=== PATIENT | male | born 1975 | race Caucasian/White ===

== ENCOUNTER → 2021-03-04 11:40 | Outpatient (BNVA) | payer BC, SELFPAY | PROVIDERS: Family Provider Family Medicine; PCP Family Medicine; Visit Provider Urology | DX: Z78.9 Other specified health status (principal) | CPT/HCPCS: 81003; 87077; 87086; 87184 ==

== ENCOUNTER 2021-04-15 08:02 | Outpatient (CLI) | payer BC, SELFPAY ==
--- NOTE | 2021-04-15 08:00 | XRR_ITS ---
PROCEDURE INFORMATION: Exam: XR Abdomen Exam date and time: 04/15/2021 8:00 AM Age: 45 years old Clinical indication: Condition or disease; Other: Urolithiasis TECHNIQUE: Imaging protocol: XR of the abdomen. Views: Frontal supine view of the abdomen. 1 View. COMPARISON: CR XR KUB [id number] 09/28/2017 1:42 PM FINDINGS: Gastrointestinal tract: Normal. No bowel dilation. Organs: There are punctate densities that superimposed over the right renal profile possibly representing renal calculi although these superimposed over the large bowel is well. Vasculature: There are stable phleboliths seen within the pelvis bilaterally. Bones/joints: Unremarkable. XR/XR KUB [id number] IMPRESSION: There are punctate densities superimposed over the right kidney although these are also superimposed over the ascending colon. Radiation Dose CTDIVOL = (mGy): DLP = (mGy-cm)
--- NOTE | 2021-04-15 08:00 | US_ITS ---
WS: [id number] RENAL ULTRASOUND HISTORY: NEUROGENIC BLADDER COMPARISON: None available. TECHNIQUE: 2-D and color Doppler imaging of the kidney submitted. Right kidney: 10.2 cm x 5.7 cm x 5.1 cm. Normal echogenicity with no hydronephrosis or mass. Left kidney: 10.4 cm x 6.1 cm x 4.9 cm. Normal echogenicity with no hydronephrosis or mass. Aorta: Normal. Urinary Bladder: Moderately distended urinary bladder measures 7.3 x 8.2 x 5.9 cm. No intraluminal fi lling defects. The prostate gland is enlarged measuring 3.8 x 4.5 x 2.4 cm with very minimal extensio n into the posterior bladder. US/US renal BI* [id number] IMPRESSION: 1. Normal renal ultrasound. No hydronephrosis or mass. 2. Moderately distended urinary bladder.
== END 2021-04-15 08:03 | disposition home or self-care (01) ==
PROVIDERS: PCP Family Medicine; Visit Provider Urology
DX: N20.9 Urinary calculus, unspecified (principal); N31.2 Flaccid neuropathic bladder, not elsewhere classified; N32.89 Other specified disorders of bladder
CPT/HCPCS: 74018; 76770; 81003

== ENCOUNTER 2022-05-25 07:42 | Outpatient (CLI) | payer BC, SELFPAY ==
--- NOTE | 2022-05-25 07:51 | XR_ITS ---
WS: [id number] KUB, AP view, 05/25/2022 Clinical Data: Urolithiasis Comparison: KUB, 04/15/2021 Findings: No abnormal intraabdominal masses or calcifications are seen. There is no dilatated small bowel or ev idence of obstruction. Fecal material and bowel glass obscure detail over both kidneys. There are phleboliths in the true pe lvis. XR/XR KUB [id number] Impression: Negative KUB.
== END 2022-05-25 07:43 | disposition home or self-care (01) ==
LOC: RAD 07:46
PROVIDERS: PCP Family Medicine; Visit Provider Urology
DX: N20.9 Urinary calculus, unspecified (principal); N39.0 Urinary tract infection, site not specified
CPT/HCPCS: 74018; 81003

== ENCOUNTER → 2022-10-21 07:48 | Outpatient (BNVA) | payer BC, SELFPAY | PROVIDERS: PCP Family Medicine; Visit Provider Urology | DX: N39.0 Urinary tract infection, site not specified (principal); N20.9 Urinary calculus, unspecified; N31.2 Flaccid neuropathic bladder, not elsewhere classified | CPT/HCPCS: 81003 ==

== ENCOUNTER → 2022-11-25 09:27 | Outpatient (BNVA) | payer BC, SELFPAY | PROVIDERS: PCP Family Medicine; Visit Provider Family Medicine | DX: N39.0 Urinary tract infection, site not specified (principal) | CPT/HCPCS: 80053; 80061; 84439; 84443; 85025 ==

== ENCOUNTER → 2023-02-14 13:06 | Outpatient (BNVA) | payer BC, SELFPAY | PROVIDERS: PCP Family Medicine; Visit Provider Family Medicine | DX: N39.0 Urinary tract infection, site not specified (principal); J02.9 Acute pharyngitis, unspecified | CPT/HCPCS: 87071; 87880 ==

== ENCOUNTER 2024-02-05 09:18 | Emergency (ER) | payer BC, SELFPAY ==
[2024-02-05] VITALS (15 sets, daily range): BP systolic 113–139; BP diastolic 76–102; PULSE 73–113; RESP 12–22; TEMP 36.4; O2SAT 94–100; BMI 23.7
--- NOTE | 2024-02-05 09:33 | CTR_ITS ---
PROCEDURE INFORMATION: Exam: CT Abdomen And Pelvis Without Contrast Exam date and time: 02/05/2024 9:58 AM Age: 48 years old Clinical indication: Abdominal pain; Flank; Prior surgery; Surgery date: 6+ months; Surgery type: Transurethral resection of prostate; Patient HX: PT arrives pov with complaint of right lower back pain. PT states he is currently being treated for a UTI with abx. PT states this morning his pain got severe in his lower back. PT states he has chronic HX of kidney stones and has been self cathing for years. PT states he has a HX of prostate surgery. PT is in position upon triage and complaining of severe pain with audible moaning and graoning. PT appears in pain. PT vomiting during triage. PT is alert and oriented with tachypnic respirations with patent airway. PT denies fever. ; Additional info: Right flank pain TECHNIQUE: Imaging protocol: Computed tomography of the abdomen and pelvis without contrast. Radiation optimization: All CT scans at this facility use at least one of these dose optimization techniques: automated exposure control; mA and/or kV adjustment per patient size (includes targeted exams where dose is matched to clinical indication); or iterative reconstruction. COMPARISON: CT kidney stone [id number] 05/31/2017 10:37 AM RADIATION DOSE METRICS: Total DLP (mGy-cm): 464.89 FINDINGS: Lungs: Lung bases are clear as visualized. Diaphragm: There is a moderate-sized hiatal hernia. Liver: Normal. No mass. Gallbladder and biliary ducts: Normal. No calcified stones. No ductal dilation. Pancreas: Normal. No ductal dilation. Spleen: Normal. No splenomegaly. Adrenal glands: Normal. No mass. Kidneys and ureters: There are multiple nonobstructing renal calculi on the right. There is mild hydronephrosis and hydroureter extending to the ureterovesical junction where there is a 1-2 mm stone present. The left kidney has a normal noncontrast appearance. Stomach and bowel: There are scattered colonic diverticula. No large bowel wall thickening is appreciated. No dilated loops of large or small bowel is appreciated. Appendix: No evidence of appendicitis. Intraperitoneal space: Unremarkable. No free air. No significant fluid collection. Vasculature: Unremarkable. No abdominal aortic aneurysm. Lymph nodes: Unremarkable. No enlarged lymph nodes. Urinary bladder: Urinary bladder has a somewhat irregular contour which may be related to cellule formation. Minimal hyperdense debris layers within the urinary bladder. Reproductive: Unremarkable as visualized. Bones/joints: Unremarkable. No acute fracture. Soft tissues: There is a small fat filled periumbilical hernia. CT/CT kidney stone [id number] IMPRESSION: 1. Nephrolithiasis on the right. 2. Mild hydronephrosis and hydroureter on the right secondary to a 1-2 mm stone at the ureterovesical junction. 3. Minimal hyperdense debris layering within the urinary bladder. These may represent tiny stones. 4. Moderate-sized hiatal hernia. 5. Diverticulosis.
[2024-02-05] MEDS: ketorolac 30 mg/mL INJ 15 MG IVP (09:40)
[2024-02-05] MEDS: sodium chloride 0.9% 1,000 ML 999 ML IV (09:41)
[2024-02-05] MEDS: morphine 4 mg/mL SDV 1 mL IVP ×2 (09:44→11:35)
[2024-02-05] MEDS: ondansetron 2 mg/ML SDV 2 mL 4 MG IVP (09:44)
[2024-02-05 09:53] LABS: Basophils # 0.1 10^3/uL (0.0-0.1); Basophils % 0.9 %; Eosinophils # 0.4 10^3/uL (0.0-0.8); Eosinophils % 6.3 %; Hematocrit 42.3 % (37-53); Lymphocytes # 1.2 10^3/uL (0.8-4.8); Lymphocytes % 18.8 %; Mean Corpuscular HGB Conc 33.6 g/dL (30-55); Mean Corpuscular Hemoglobin 30.1 pg (27-33); Mean Corpuscular Volume 89.6 fl (82-101); Mean Platelet Volume 9.8 fL (7.4-10.4); Monocytes # 0.4 10^3/uL (0.2-0.9); Monocytes % 6.8 %; Neutrophils # 4.23 10^3/uL (1.8-7.7); Neutrophils % 66.7 %; Nucleated Red Blood Cells % 0 %; Platelet Count 252 10^3/cmm (157-399); Red Blood Count 4.72 10^6/uL (3.85-5.65); Red Cell Distribution Width 13.2 % (12.1-15.1); White Blood Count 6.34 10^3/uL (3.29-11.43)
[2024-02-05 10:11] LABS: Albumin Level 4.4 g/dL (3.5-5.2); Alkaline Phosphatase 109 U/L (40-130); Aspartate Amino Transferase 19 U/L (0-40); Blood Urea Nitrogen 12 mg/dL (6-20); Calcium 9.1 mg/dL (8.5-10.5); Carbon Dioxide 20 mmol/L (22-29); Chloride 101 mmol/L (98-107); Creatinine Clr Calc Pharmacy 95.0305; Globulin 3.2 g/dL (1.3-4.6); Glomerular Filtration Rate 79.1 mL/min (90-130); Glucose 139 mg/dL (65-115); Osmolality Calculated 286 mOsm/kg (285-295); Sodium 137 mmol/L (136-145); Total Bilirubin 0.7 mg/dL (0.15-1.2); Total Protein 7.6 g/dL (6.6-8.7)
[2024-02-05 10:22] LABS: Alanine Aminotransferase 15 U/L (0-41)
--- NOTE | 2024-02-05 12:46 | W.ED.ABDPA2 ---
HPI - Abdominal Pain General: Chief Complaint: Abdominal Pain Stated Complaint: right kidney pain, vomiting Time Seen by Provider: 02/05/24 09:27 History of Present Illness: This patient is a 48 year old presenting with right flank pain. He has a history of kidney stones and this feels like a kidney stone. It started abruptly this morning, although he has felt like he might be getting a UTI for a week or more. He has a flaccid bladder and self caths. He is on methenamine daily for UTI prevention. He has seen Dr. Ribera and had a urological procedure in [place] 3 or 4 years ago (roto-rooter?) but currently does not see a urologist. He is managed by his PCP. He has had vomiting today. No fever. He is not able to provide much history initially due to severity of his pain. Related Data Home Medications Medication Instructions Recorded Confirmed ascorbic acid (vitamin C) 1,000 mg 1 g PO DAILY PRN 11/25/22 02/14/23 capsule lactobacillus combination no.9 4 PO 11/25/22 02/14/23 billion cell capsule (Adult 50 Plus Probiotic) Previous Rx's Medication Instructions Recorded prednisone 20 mg tablet 40 mg (2 x 20 mg) PO DAILY 3 days 02/14/23 #6 tabs omeprazole 40 mg capsule,delayed See Rx Instructions .Route 12/01/23 release .COMPLEX #30 caps methenamine hippurate 1 gram tablet 1 g PO DAILY Recurrent UTI #30 tabs 01/09/24 Allergies Allergy/AdvReac Type Severity Reaction Status Date / Time No Known Allergies Allergy Verified 02/05/24 09:36 [facility] ED PFS: Medical History Neurogenic bladder, flaccid Recurrent UTI Self-catheterizes urinary bladder Urolithiasis Surgical History Hx of transurethral resection of prostate Family History Father , at age 68 CAD (coronary artery disease) Mother Cancer breast Other Diabetes Denies family history of Clotting disorder Dementia Hyperlipidemia Psychiatric illness Chronic kidney disease (CKD) Anesthesia complication Bleeding disorder Lung disease Hypertension Stroke Social History (Reviewed 02/14/23 @ 12:56 by ERIN Chairez Smoking and tobacco/nicotine status: former use of tobacco/nicotine Alcohol intake: current Alcohol intake frequency: holidays/special occasions only Alcohol type: beer Substance/Drug Use: never Lives independently: Yes Marital status: Number of children: 1 Current occupational status: employed 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 Ramona/L[employer]: [employer] Special ramona needs: No Agree to transfusion: Yes Physical Exam Const: COMMON NORMALS: patient oriented x3 and alert GENERAL APPEARANCE: cooperative, comfortable, in distress and anxious HENMT: HEAD & SCALP: normal to inspection FACE & SINUS: normal facial exam Eye: GENERAL EYE: appearance normal, both eyes and all related structures Neck/C-Spine: COMMON NORMALS: supple, no meningeal signs and no JVD Resp: COMMON NORMALS: normal respiratory effort, No use of accessory muscles and clear to auscultation bilaterally AUSCULTATION: clear to auscultation bilaterally Cardio: COMMON NORMALS: no JVD, regular rhythm and No murmurs present (Cardio) RATE: tachycardic RHYTHM: regular rhythm GI: COMMON NORMALS: Normal to inspection, nondistended, normoactive bowel sounds present and Soft to palpation INSPECTION: Yes normal to inspection AUSCULTATION: Yes normoactive bowel sounds PALPATION: Yes Soft to palpation and Yes Tenderness to palpation present (GI) Details: RLQ and RUQ : BLADDER/KIDNEY EXAM: Yes CVA tenderness on the right Back/Pelvis: COMMON NORMALS: thoracic and lumbar spine normal to inspection GENERAL BACK: Yes CVA tenderness Extremity: COMMON NORMALS: normal to inspection Neuro: COMMON NORMALS: patient oriented x3, moves all extremities, no focal motor deficits and no sensory deficits noted SENSORIUM/ORIENTATION: Yes alert MENINGEAL SIGNS: Yes no meningeal signs Psych: COMMON NORMALS: mental status grossly normal, cooperative and normal affect Skin: COMMON NORMALS: no rashes or lesions noted and turgor normal GENERAL SKIN EXAM: no rashes or lesions noted and turgor normal Course Vital Signs: Vital signs: Vital Signs Temperature 97.5 F L 02/05/24 09:48 Pulse Rate 83 02/05/24 17:30 Respiratory Rate 17 02/05/24 13:52 Blood Pressure 113/76 02/05/24 17:30 Pulse Oximetry 100 02/05/24 17:30 Oxygen Delivery Me thod Room Air 02/05/24 17:30 MDM - Abdominal Pain Medical Decision Making History of kidney stones - presentation is consistent with that diagnosis. Pain control and anti-emetics started - CT pending. UA pending. Concerning for infected stone given the history that he feels like he has had a UTI and has a history of recurrent UTIs with self cathing. CT shows obstructing ,small, distal stone - UA with 2+ bacteria and WBC. Pain is improved but still not controlled - continues to have vomiting and unable to tolerate PO. Plan to admit due to intractable pain and vomiting - as well as history of recurrent UTIs, self cathing, obstructing stone with UTI. [facility] was patient's initial choice for transfer - but they have no beds available. Waiting to hear back from [facility]. Patient accepted to urologist at [place] as a direct admit. Rocephin started. Urine culture pending. Lab Data 02/05/24 09:46 02/05/24 09:46 Labs/Radiology: Radiology Impressions Abdomen/Pelvis CT 02/05/24 09:33 IMPRESSION: 1. Nephrolithiasis on the right. 2. Mild hydronephrosis and hydroureter on the right secondary to a 1-2 mm stone at the ureterovesical junction. 3. Minimal hyperdense debris layering within the urinary bladder. These may represent tiny stones. 4. Moderate-sized hiatal hernia. 5. Diverticulosis. Laboratory Results WBC 6.34 10^3/uL (3.29-11.43) 02/05/24 09:46 RBC 4.72 10^6/uL (3.85-5.65) 02/05/24 09:46 Hgb 14.20 g/dL (11.27-16.99) 02/05/24 09:46 Hct 42.3 % (37-53) 02/05/24 09:46 MCV 89.6 fl (82-101) 02/05/24 09:46 MCH 30.1 pg (27-33) 02/05/24 09:46 MCHC 33.6 g/dL (30-55) 02/05/24 09:46 RDW 13.2 % (12.1-15.1) 02/05/24 09:46 Plt Count 252 10^3/cmm (157-399) 02/05/24 09:46 MPV 9.8 fL (7.4-10.4) 02/05/24 09:46 Neut % (Auto) 66.7 % 02/05/24 09:46 Lymph % (Auto) 18.8 % 02/05/24 09:46 O'Brien % (Auto) 6.8 % 02/05/24 09:46 Eos % (Auto) 6.3 % 02/05/24 09:46 Baso % (Auto) 0.9 % 02/05/24 09:46 Neut # (Auto) 4.23 10^3/uL (1.8-7.7) 02/05/24 09:46 Lymph # (Auto) 1.2 10^3/uL (0.8-4.8) 02/05/24 09:46 O'Brien # (Auto) 0.4 10^3/uL (0.2-0.9) 02/05/24 09:46 Eos # (Auto) 0.4 10^3/uL (0.0-0.8) 02/05/24 09:46 Baso # (Auto) 0.1 10^3/uL (0.0-0.1) 02/05/24 09:46 Nucleated RBC % (auto) 0 % 02/05/24 09:46 Nucleated RBCs # 0.0 /100WBC 02/05/24 09:46 Sodium 137 mmol/L (136-145) 02/05/24 09:46 Potassium 4.0 mmol/L (3.5-5.1) 02/05/24 09:46 Chloride 101 mmol/L (98-107) 02/05/24 09:46 Carbon Dioxide 20 mmol/L (22-29) L 02/05/24 09:46 Anion Gap 20.0 (5-19) H 02/05/24 09:46 BUN 12 mg/dL (6-20) 02/05/24 09:46 Creatinine 1.0 mg/dL (0.7-1.2) 02/05/24 09:46 GFR Calculation 79.1 mL/min (90-130) L 02/05/24 09:46 Glucose 139 mg/dL (65-115) H 02/05/24 09:46 Calculated Osmolality 286 mOsm/kg (285-295) 02/05/24 09:46 Calcium 9.1 mg/dL (8.5-10.5) 02/05/24 09:46 Total Bilirubin 0.7 mg/dL (0.15-1.2) 02/05/24 09:46 AST 19 U/L (0-40) 02/05/24 09:46 ALT 15 U/L (0-41) 02/05/24 09:46 Alkaline Phosphatase 109 U/L (40-130) 02/05/24 09:46 Total Protein 7.6 g/dL (6.6-8.7) 02/05/24 09:46 Albumin 4.4 g/dL (3.5-5.2) 02/05/24 09:46 Globulin 3.2 g/dL (1.3-4.6) 02/05/24 09:46 Urine Color Yellow (Yellow) 02/05/24 12:37 Urine Appearance Clear (CLEAR) 02/05/24 12:37 Urine pH 7 (5-7) 02/05/24 12:37 Ur Specific [place] 1.010 (1.005-1.030) 02/05/24 12:37 Urine Protein Neg (Negative) 02/05/24 12:37 Urine Glucose (UA) Norm (Normal) 02/05/24 12:37 Urine Ketones 1+ (Negative) H 02/05/24 12:37 Urine Blood Neg (Negative) 02/05/24 12:37 Urine Nitrate Negative (Negative) 02/05/24 12:37 Urine Bilirubin Neg (Negative) 02/05/24 12:37 Urine Urobilinogen Norm mg/dL (Negative) 02/05/24 12:37 Ur Leukocyte Esterase 2+ (Negative) H 02/05/24 12:37 Urine RBC None /hpf (0-2) 02/05/24 12:37 Urine WBC 15-25 /hpf (0-5) H 02/05/24 12:37 Ur Squamous Epith Cells None /hpf (0-5) 02/05/24 12:37 Amorphous Sediment Not Reportable 02/05/24 12:37 Urine Bacteria 2+ /hpf (NONE) H 02/05/24 12:37 All radiology interpretation(s) finalized by discharge Discharge Plan Discharge Patient Disposition: Transfer to ED Clinical Impression: Obstruction of right kidney, Neurogenic bladder, flaccid, Recurrent UTI, Acute UTI Condition: Stable Prescriptions: No Action prednisone 20 mg tablet 40 mg PO DAILY 3 Days Qty: 6 0RF ascorbic acid (vitamin C) 1,000 mg capsule 1 g PO DAILY PRN Patient Comments: Takes with the antibiotic Adult 50 Plus Probiotic 4 billion cell capsule PO omeprazole 40 mg capsule,delayed release(DR/EC) See Rx Instructions .ROUTE .COMPLEX Qty: 30 0RF Dose Instruction: Take 1 capsule by mouth at bedtime Rx Instructions: Take 1 capsule by mouth at bedtime methenamine hippurate 1 gram tablet 1 g PO DAILY Qty: 30 0RF Rx Instructions: 1 pill BID w/ 1 g vitamin C each dose Do not take with BACTRIM Referrals: Juarez Shah MD [Primary Care Provider] - Coding Level of Care Code ED Vocational Psychologist for Tad Rios
[2024-02-05 13:16] LABS: Glucose Urine UA Norm (Normal); Protein Urine Neg (Negative); Urine Appearance Clear (CLEAR); Urine Color Yellow (Yellow); pH Urine 7 (5-7)
[2024-02-05 13:17] LABS: Add Urine Culture? Yes; Add Urine Microscopic? YES; Bacteria Urine 2+ /hpf; Bilirubin Urine Neg (Negative); Blood Urine Neg (Negative); Ketones Urine 1+ (Negative); Leukocyte Esterase Urine 2+ (Negative); Nitrate Urine Negative (Negative); Urobilinogen Urine Norm (Negative); WBC Urine 15-25 /hpf (0-5)
[2024-02-05] MEDS: HYDROmorphone 1 mg/mL INJ 1 mL 0.5 MG IVP (13:52)
[2024-02-05] MEDS: ondansetron 2 mg/ML SDV 2 mL 8 MG IVP (13:53)
[2024-02-05] MEDS: cefTRIAXone 1,000 mg SDV 1000 MG IVP (15:25)
== END 2024-02-05 20:51 | disposition home or self-care (01) ==
PROVIDERS: Emergency Provider Emergency Medicine; PCP Family Medicine
DX: N39.0 Urinary tract infection, site not specified (principal); N31.2 Flaccid neuropathic bladder, not elsewhere classified; Z87.440 Personal history of urinary (tract) infections; N13.1 Hydronephrosis with ureteral stricture, not elsewhere classified; Z87.891 Personal history of nicotine dependence
CPT/HCPCS: 74176; 80053; 81001; 85025; 87086; 96361; 96374; 96375; 96376; 99285; J0696; J1170; J1885; J2270; J2405; J7030

== ENCOUNTER 2025-02-06 09:07 | Observation (INO) | payer BC, SELFPAY ==
[2025-02-06] VITALS (73 sets, daily range): BP systolic 63–150; BP diastolic 44–112; PULSE 77–113; RESP 12–28; TEMP 36.6–36.8; O2SAT 82–100; BMI 23.3
--- OUTSIDE RECORDS SUMMARY | 2025-02-06 09:14 | XMS_ITS | Patient Health Record ---
Author Organization [facility] Address [address] [place] [address] Care Team Providers Care Adult Daycare Coordinator Name Role Phone Juarez Shah MD Primary Care Provider Unavailab CHANTE Zabala Unavailable [phone] ILIANA LU Unavailable [phone] ERNST BARKER Unavailable [phone] Allergies No Known Allergies Results Component Value Reference Range Notes CLIENT EDUCATION TRACKING Reviewed date:04/05/2024 12:54:20 PM Interpretation: Performing Lab:[facility] MCKAY-[id number] [place], [id number] Nithya Sin MD Notes/Report: FASTING: NO CLIENT EDUCATION TRACKING The Requisition we received did not include a [employer] [facility] account number. To prevent delays in testing and processing of your orders please provide the following information with every order submitted: [facility] account number and account name Client address Client phone and fax number NPI number of ordering physician along with the physician name. CBC w/ Auto Diff Reviewed date:04/03/2024 10:48:24 AM Interpretation: Performing Lab: Notes/Report: Testing performed at: [place] [address] [place] [address] CLIA ID [id number] WBC 5.8 4.5-11.0 X10'3 RBC 4.61 4.50-5.90 X10'6 Hgb 13.8 13.5-17.5 G/DL Hct 42.3 41.0-53.0 % MCV 91.8 80.0-100.0 FL MCH 29.9 27.0-31.0 PG MCHC 32.6 31.0-37.0 G/DL Platelet 299 150-400 X10'3 RDW-SD 45.8 35.0-49.0 FL RDW-CV 13.4 12.2-15.6 % MPV 9.7 9.2-12.0 FL Neutro Auto% 64.8 40.0-70.0 % Lymph Auto% 20.1 22.0-44.0 % Stafford Auto% 10.7 3.0-7.0 % Eos Auto% 3.1 2.0-4.0 % Baso Auto% 1.0 0.0-1.0 % Imm Gran% .3 .0-.4 % Neutro Abs 3.77 .80-7.70 Absolute Neutrophil Count 3770 Lymph Abs 1.17 .10-4.10 Stafford Abs .62 .20-1.00 Eos Abs .18 .00-.40 Baso Abs .06 .00-.20 Imm Gran Abs .02 .00-.10 NRBC# .00 .00-.20 NRBC% .00 .00-.20 /100 int act WBC's Basic Metabolic Panel Reviewed date:04/03/2024 10:48:24 AM Interpretation: Performing Lab: Notes/Report: Use of this assay is not recommended for patients undergoing treatment with phenindione, due to the potential for falsely depressed results. Testing performed at: [address] [place] [address] CLIA ID [id number] Calculation performed from GFR calculator provided by the [employer]. Glomerular Filtration rate(GRF) is the best overall index of kidney function. Normal GFR varies according to age,sex, body size, and declines with age. The National Kidney Foundation recommends using the CKD-EPI Creatinine Equation(2020) to estimate GFR. Y-fxauuf-k-benzoquinone imine (NAPQI) is a metabolite of acetaminophen, NAPQI concentrations of apparoximately 10 mg/L correlation to toxic levels of acetaminophen demonstrates a greater than or equil to 10% change in results. NAPQI concentrations greater than this may lead to falsely depressed results for patient samples. Testing performed at [facility], [address] [place] [address] [place] [address]. CLIA ID#: [id number] Sodium 141 136-145 MMOL/L Potassium 4.0 3.5-5.1 MMOL/L Chloride 109 98-107 MMOL/L CO2 27.2 20.0-31.0 MMOL/L Glucose Serum 77 71-110 MG/DL BUN 13 7-21 MG/DL Creat 1.00 .57-1.17 MG/DL GFR 90.6 Anion Gap 9 5-15 BUN/Creat Ratio 13.0 12.0-20.0 % Calcium 9.8 8.7-10.4 MG/DL CULTURE, URINE, ROUTINE (395 ) Reviewed date:04/06/2024 08:07:04 AM Interpretation: Performing Lab:[facility] [employer][id number] [place] [facility], [id number] Nithya Sin MD Notes/Report: FASTING: NO CULTURE, URINE, ROUTINE SEE NOTE CULTURE, URINE, ROUTINE Micro Number: [id number] Test Status: Final Specimen Source: Not given Specimen Quality: Adequate Result: No Growth NO COLLECTION DATE RECEIVED. WE HAVE USED THE DATE THE SPECIMEN WAS RECEIVED BY THIS LABORATORY THE COLLECTION DATE. IF THIS IS INCORRECT, PLEASE CONTACT CLIENT SERVICES. PHONE NUMBER: [phone] Urinalysis, Routine Reviewed date:04/02/2024 03:44:17 PM Interpretation: Performing Lab: Notes/Report: Urine-Color yellow Appearance clear Glucose - Bilirubin - Ketones - Specific [place] 1.015 Occult Blood - pH 6.0 Urine Protein - Urobilinogen,Semi-Qn - Nitrite, Urine - WBC Esterase - Urinalysis, Routine Reviewed date:02/07/2024 02:07:16 PM Interpretation: Performing Lab: Notes/Report: Urine-Color yellow Appearance clear Glucose - Bilirubin - Ketones - Specific [place] 1.015 Occult Blood - pH 6.0- Urine Protein - Urobilinogen,Semi-Qn - Nitrite, Urine - WBC Esterase 1+ Urinalysis, Routine Reviewed date:10/30/2024 03:34:25 PM Interpretation: Performing Lab: Notes/Report: Urine-Color yellow Appearance slightly cloudy Glucose - Bilirubin - Ketones - Specific [place] 1005 Occult Blood - pH 6.5 Urine Protein - Urobilinogen,Semi-Qn - Nitrite, Urine - WBC Esterase 2+ Urinalysis Gross Exam - zzzAbdomen AP Reviewed date:02/29/2024 04:56:26 PM Interpretation: Performing Lab: Notes/Report: See Below For Report Abdomen AP Read See Below For Report CT Abdomen, Pelvis w/o Contr ast--[id number] Reviewed date:02/29/2024 04:56:18 PM Interpretation: Performing Lab: Notes/Report: See Below For Report CT Abdomen, Pelvis w/o Contrast Read See Below For Report zzzAbdomen Reviewed date:05/02/2024 08:39:13 AM Interpretation: Performing Lab: Notes/Report: See Below For Report Abdomen Read See Below For Report zzzAbdomen AP Reviewed date:10/31/2024 10:53:59 AM Interpretation: Performing Lab: Notes/Report: See Below For Report Abdomen AP Read See Below For Report Reason For Referral No Information Medications Medication SIG (Take, Route, Frequency, Duration) Notes Start Date End Date Status Tamsulosin HCl 0.4 MG 1 capsule Orally Once a day; Duration: 90 days 02/29/2024 02/23/2025 Not-Taking Omeprazole 40 MG 1 capsule 30 minutes before morning meal Orally Once a day Active Trimethoprim 100 MG 1 tablet Orally Once a day; Duration: 90 days Active Probiotic occasionally Active ZyrTEC 10 MG 1 tablet Orally Once a day Active Social History Tobacco Use: Social History Observation Description Date Details (start date - stop date) Former Smoker NA - NA Tobacco Control (Standard) Question Answer Notes Tobacco use: Former smoker How long has it been since you last smoked? 5-10 years Problems Problem Type SNOMED Code ICD Code Onset Dates Problem Status W/U Status Risk Notes Problem Neurogenic bladder (065747096) Neurogenic bladder (N31.9) Active confirmed Problem Benign prostatic hyperplasia (961119280) BPH (benign prostatic hyperplasia) (N40.0) Active confirmed Problem Kidney stone (10820209) Right nephrolithiasis (N20.0) Active confirmed Problem Recurrent nephrolithiasis (1203766418446006) Recurrent nephrolithiasis (N20.0) Active confirmed Problem Calculus of kidney and ureter (299944734) Calculus of kidney and ureter (N20.2) Active confirmed Vital Signs Heart Rate 79 /min 05/01/2024 Temperature 97.8 degrees Fahrenheit 02/29/2024 Blood pressure diastolic 103 mm Hg 05/01/2024 Height-cm 180.34 cm 10/30/2024 Weight-kg 72.58 kg 10/30/2024 Height 71 in 10/30/2024 Blood pressure systolic 154 mm Hg 05/01/2024 Weight 160 lbs 10/30/2024 BMI 22.31 kg/m2 10/30/2024 Procedures Procedure Date Ordered Date Performed Result Body Sit e Bladder Scan 02/07/2024 02/07/2024 N/A Encounters Encounter Location Date Provider Diagnosis [facility] [address] [place] [address] 02/07/2024 CHANTE LANDIN Calculus of kidney a nd ureter N20.2 ; History of urethral stricture Z87.448 ; Recurrent UTI N39.0 and Neurogenic bladder N31.9 [facility] [address] [place] [address] 02/29/2024 CHANTE LANDIN Neurogenic bladder N 31.9 ; Right nephrolithiasis N20.0 ; Recurrent UTI N39.0 ; History of urethral stricture Z87.448 and BPH (benign prostatic hyperplasia) N40.0 [facility] [address] [place] [address] 04/02/2024 ERNST BARKER Right nephrolithiasi s N20.0 ; Preoperative examination Z01.818 ; Neurogenic bladder N31.9 ; Recurrent UTI N39.0 ; History of urethral stricture Z87.448 and BPH (benign prostatic hyperplasia) N40.0 [facility] [address] [place] [address] 04/03/2024 ILIANA LU Recurrent nephrolithiasis N20.0 [facility] [address] [place] [address] 05/01/2024 CHANTE LANDIN Neurogenic bladder N 31.9 ; Right nephrolithiasis N20.0 ; Recurrent UTI N39.0 ; History of urethral stricture Z87.448 and BPH (benign prostatic hyperplasia) N40.0 [facility] [address] [place] [address] 10/30/2024 CHANTE LANDIN Recurrent UTI N39.0 ; Recurrent nephrolithiasis N20.0 ; Neurogenic bladder N31.9 ; History of urethral stricture Z87.448 and BPH (benign prostatic hyperplasia) N40.0 [facility] [address] [place] [address] 02/13/2024 CHANTE LANDIN Neurogenic bladder N 31.9 ; Calculus of kidney and ureter N20.2 and Recurrent UTI N39.0 [facility] [address] [place] [address] 02/14/2024 CHANTE LANDIN [facility] [address] [place] [address] 03/30/2024 ILIANA LU [facility] [address] [place] [address] 04/02/2024 ILIANA LU Preop testing Z01.81 8 and Right nephrolithiasis N20.0 [facility] [address] [place] [address] 04/02/2024 ILIANA LU Assessments Encounter Date Diagnosis (ICD Code) Assessment Notes Treatment Notes Treatment Clinical Notes Section Notes 02/07/2024 History of urethral stricture (ICD-10 - Z87.448) 02/07/2024 Calculus of kidney and ureter (ICD-10 - N20.2) 02/13/2024 Neurogenic bladder (ICD-10 - N31.9) 02/13/2024 Calculus of kidney and ureter (ICD-10 - N20.2) 02/29/2024 Neurogenic bladder (ICD-10 - N31.9) Pt to continue CIC 4x daily, indefinitely. He is having difficulty passing 14f straight catheter and he has h/o TURP. Will change to coude' catheter. If he is still having difficulty, he will notify us to schedule cystoscopy. 02/29/2024 Right nephrolithiasis (ICD-10 - N20.0) I have independently reviewed CT and KUB imaging, along with radiologic report. I reviewed images and discussed findings with patient in the exam room. He has been reassured that he passed his ureteral stone. He has large stone burden in right kidney. They are visible on KUB. Offered ESWL. He would like to proceed. We reviewed how procedure is performed along with risks, benefits, and postprocedural expectations. He would like to schedule. 04/02/2024 Preop testing (ICD-10 - Z01.818) 04/02/2024 Right nephrolithiasis (ICD-10 - N20.0) 04/02/2024 Preoperative examination (ICD-10 - Z01.818) 04/03/2024 Recurrent nephrolithiasis (ICD-10 - N20.0) 05/01/2024 Neurogenic bladder (ICD-10 - N31.9) Pt to continue CIC 4x daily, indefinitely. He is having difficulty passing 14f straight catheter and he has h/o TURP. Will change to coude' catheter. If he is still having difficulty, he will notify us to schedule cystoscopy. 10/30/2024 Recurrent nephrolithiasis (ICD-10 - N20.0) He has small right lower pole stone remaining based on last imaging. I have independently KUB reviewed imaging, along with radiologic report. His stone is not visible. No other visible stones. He will continue stone prevention recommendations as previously outlined. Will transition to yearly surveillance. RTC in 1 year with KUB or sooner if needed. 10/30/2024 Recurrent UTI (ICD-10 - N39.0) Asymptomatic without breakthrough infection since transitioning to daily tmp suppression. Will continue. 05/01/2024 Right nephrolithiasis (ICD-10 - N20.0) I have independently reviewed KUB imaging, along with radiologic report. I reviewed images and discussed findings with patient in the exam room. He has large stool burden over right kidney making visualization difficulty, but no obvious stone remaining. HE has no postoperative complaint or complication. Continue stone prevention as outlined on prior metabolic urine analysis. RTC in 6-12m for surveillance KUB. 10/30/2024 Neurogenic bladder (ICD-10 - N31.9) Pt to continue CIC 4x daily, indefinitely. He had difficulty passing 14f straight catheter with h/o TURP. No difficulty passing since changing to coude' catheters. 04/02/2024 Neurogenic bladder (ICD-10 - N31.9) 02/29/2024 Recurrent UTI (ICD-10 - N39.0) He would like to stop methenamine and VitC suppression to help decrease risk of stone recurrence. Will start daily tmp supression. 04/02/2024 Right nephrolithiasis (ICD-10 - N20.0) 02/13/2024 Recurrent UTI (ICD-10 - N39.0) 02/07/2024 Recurrent UTI (ICD-10 - N39.0) Pt on daily methenamine suppression wiht VitC. We discussed how high dose VitC could be contributing to his stones, but he isn't sure that he stone burden has increased recently that these are long existing stones. Will monitor. 02/29/2024 History of urethral stricture (ICD-10 - Z87.448) 02/07/2024 Neurogenic bladder (ICD-10 - N31.9) Pt s/p TURP >5 years ago without return of normal voiding. He is to continue CIC 4x daily indefinitely. 04/02/2024 Recurrent UTI (ICD-10 - N39.0) 05/01/2024 Recurrent UTI (ICD-10 - N39.0) Pt has been changed to daily tmp supression. No UTI symptoms today. Will continue. 10/30/2024 History of urethral stricture (ICD-10 - Z87.448) 10/30/2024 BPH (benign prostatic hyperplasia) (ICD-10 - N40.0) 05/01/2024 History of urethral stricture (ICD-10 - Z87.448) 04/02/2024 History of urethral stricture (ICD-10 - Z87.448) 02/29/2024 BPH (benign prostatic hyperplasia) (ICD-10 - N40.0) 04/02/2024 BPH (benign prostatic hyperplasia) (ICD-10 - N40.0) 05/01/2024 BPH (benign prostatic hyperplasia) (ICD-10 - N40.0) 02/07/2024 Other Currently doing well with pain control and he would like to continue the trial of passage for now. Importance of hydration, as well as, use of Flomax and strainers reinforced. Understands the unfavorable chances of passing a stone this size, but it is certainly possible and we will allow for a 2-3 week trial prior to obtaining repeat CT. We also reviewed surgical options including ureteroscopy versus ESWL and patient will call back sooner if he desires to proceed with that but otherwise continue trial of passage. If patient passes stone, he will cancel CT and will get KUB prior to appt to assess if his other R. stones could be ESWL. 02/29/2024 Other 04/02/2024 Other Patient schedul ed for R ESWL on 04/03/[address] Lu. How the procedure was performed was discussed along with risks/benefits/alt ernatives and postprocedural expectations. Patient is not on anticoagulation. Denies problems with anesthesia in the past, no new medications or diagnoses since last visit. Patient has presurgical testing at [facility]. Urine sent for PCR/culture and we will treat as indicated preoperatively. All questions that were asked were answered and elects to proceed with procedure as scheduled. Patient will RTC postoperatively and is satisfied with plan of care. Plan Of Treatment Pending Test Test Name Order Date X ray : Kidneys, Ureters and Bladder ([facility]) 02/13/2024 X ray : Kidneys, Ureters and Bladder ([facility]) 08/21/2024 CULTURE, URINE, ROUTINE (395) 04/02/2024 [place] [id number] 02/13/20 24 Electrocardiogram, 12 Lead Tracing-[id number] 04/02/2024 PSA-Diagnostic 10/30/2024 Future Test Test Name Order Date X ray : Kidneys, Ureters and Bladder ([facility]) 10/30/2024 Next Appt Details Provider Name:CHANTE SALAS, 10/31/2025 02:00:00 PM, [address] [place], [address], Insurance Providers Payer Name Payer Address Payer Phone Subscriber Number Group Number Insured Name Patient Relationship to Insured Coverage Start Date Coverage End Date [place] [address] [place], [place] [id number] Marty Nuñez Self - patient is the insured Medical (General) History Medical History History ICD Code blood in urine burning with urination kidney stones frequent UTIs weak stream Surgical History Surgery Date(Month/Year) TURP 03/2018
--- NOTE | 2025-02-06 09:16 | CT_ITS ---
WS: [id number] CT HEAD NONCONTRAST HISTORY: Symptoms of acute stroke TECHNIQUE: Contiguous axial imaging performed through the brain. Bone and soft tissue windows. Sagittal and coronal reformats reviewed. All CT scans at [facility] use at least one of these dose optimization techniques: automated exposure control; mA and/or kV adjustment per patient size (includes targeted exams where dose is matched to clinical indication); or iterative reconstruction. DLP: 1034.87 mGy COMPARISON: None available. No acute intracranial hemorrhage, midline shift or mass effect. No atrophy or prior infarcts or herniation. Very slight decreased attenuation in the basal ganglia and dangelo radiata, slightly greater on the LEFT. This all may be secondary to small vessel disease. No area of acute infarct identified. Ventricles: Normal size with no hydrocephalus. No inferior displacement of the cerebellar tonsils. Paranasal sinuses: As visualized are clear. Mastoid air cells: Well pneumatized. Calvarium and scalp: Skull is intact with no soft tissue edema or swelling. CT/CT head thrombolytic 16254 IMPRESSION: 1. No acute intracranial hemorrhage or edema. 2. Mild small vessel disease. No acute infarct identified. Notified Michael Lee DO at 02/06/2025 9:29 AM.
--- NOTE | 2025-02-06 09:16 | ECG_ITS ---
[facility] Date: 2025-02-06 Pat Name: Marty Nuñez Department: Room: Gender: Male [employer]: : 1975 Requested By: Michael Ulola Order Number: [id number] Isaura MD: Faizan Fuller M.D. Measurements Intervals [place] Rate: 102 P: 42 OK: 162 QRS: 31 QRSD: 83 T: 43 QT: 331 QTc: 432 Interpretive Statements SINUS TACHYCARDIA ABNORMAL RHYTHM ECG Compared to ECG 05/31/2017 09:10:43 Sinus rhythm no longer present Electronically Signed On 02-06-2025 13:43:04 CDT by Faizan Fuller M.D. [email or web address]
--- NOTE | 2025-02-06 09:25 | ED_ITS ---
HPI - Neuro Symptoms/Deficit 2 General: Chief Complaint: Neuro Symptoms/Deficit Stated Complaint: R side face and arm tingling, heavy feeling History of Present Illness: 49-year-old male presents emergency room with what he describes right-sided face numbness and tingling and a heavy feeling in his right arm. Known well 845. No previous strokes or coronary artery disease. This began suddenly while he was at work he is not on any anticoagulants. Associated symptoms: Deny chest pain Related Data Home Medications ?Medication ?Instructions ?Recorded ?Confirmed acetaminophen 325 mg tablet 325 mg PO QID PRN Fever Or Pain 02/06/25 02/06/25 (Tylenol) fexofenadine 180 mg tablet 180 mg PO DAILY 02/06/25 ibuprofen 200 mg tablet (Advil) 400 mg PO Q6H PRN Pain 02/06/25 02/06/25 meclizine 25 mg tablet 25 mg PO BID PRN Congestion 02/06/25 02/06/25 trimethoprim 100 mg tablet 100 mg PO DAILY 02/06/25 Previous Rx's ?Medication ?Instructions ?Recorded omeprazole 40 mg capsule,delayed See Rx Instructions . Route 12/01/23 release .COMPLEX #30 caps Allergies Allergy/AdvReac Type Severity Reaction Status Date / Time No Known Allergies Allergy Verified 02/06/25 09:16 Review of Systems 2 Const: Denies: fever(s) or chills Card: Denies: chest pain Resp: Denies: dyspnea GI: Denies: abdominal pain : Denies: dysuria, urinary frequency or urinary urgency Musc: Denies: neck pain or back pain Skin/Breast: Denies: rash PFSH ED 2 PFSH: Medical History Urolithiasis Recurrent UTI Neurogenic bladder, flaccid Self-catheterizes urinary bladder Surgical History Hx of transurethral resection of prostate Family History Father , at age 68 CAD (coronary artery disease) Mother Cancer breast Other Diabetes Denies family history of Clotting disorder Dementia Hyperlipidemia Psychiatric illness Chronic kidney disease (CKD) Anesthesia complication Bleeding disorder Lung disease Hypertension Stroke Social History Smoking and tobacco/nicotine status: former use of tobacco/nicotine Alcohol intake: current Alcohol intake frequency: holidays/special occasions only Alcohol type: beer Substance/Drug Use: never Lives independently: Yes Marital status: Number of children: 1 Current occupational status: employed 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 Ramona/Zoroastrianism: Latter-Day Special ramona needs: No Agree to transfusion: Yes NIH stroke score 2 NIHSS: Level Of Consciousness - 1a: 0 Level Of Consciousness Questions - 1b: Both Correct Level Of Consciousness Commands - 1c: Both Correct Best Gaze - 2: Normal Visual Chou - 3: No Visual Loss Facial Palsy - 4: N ormal Motor Arm Right - 5: Drift Motor Arm Left - 5: No Drift Motor Leg Right - 6: No Drift Motor Leg Left - 6: No Drift Limb Ataxia - 7: Present In One Limb Sensory - 8: Normal Best Language - 9: No Aphasia Dysarthia - 10: Normal Extinction And Inattention - 11: 0 Score: Total Score: 2 Physical Exam 2 Const: COMMON NORMALS: no acute distress GENERAL APPEARANCE: cooperative and comfortable ORIENTATION/CONSCIOUSNESS: Yes awake, Yes oriented to person, Yes oriented to place and Yes oriented to time HENMT: COMMON NORMALS: normocephalic, atraumatic and hearing grossly normal bilaterally HEAD & SCALP: normocephalic and atraumatic Resp: COMMON NORMALS: normal respiratory effort, No retractions, No use of accessory muscles and clear to auscultation bilaterally AUSCULTATION: clear to auscultation bilaterally Cardio: COMMON NORMALS: regular rate, regular rhythm and No murmurs present (Cardio) RATE: regular rate RHYTHM: regular rhythm GI: COMMON NORMALS: Soft to palpation and No hepatosplenomegaly present A USCULTATION: Yes normoactive bowel sounds PALPATION: Yes Soft to palpation, No Tenderness to palpation present (GI), No Guarding due to palpation present (GI) and Yes No hepatosplenomegaly present Extremity: COMMON NORMALS: normal to inspection, capillary refill normal, no clubbing, cyanosis or edema, no calf tenderness and no pedal edema Neuro: SENSORIUM/ORIENTATION: Yes oriented to person, Yes oriented to place and Yes oriented to time Skin: COMMON NORMALS: no rashes or lesions noted GENERAL SKIN EXAM: no rashes or lesions noted Course 2 Vital Signs: Vital signs: Vital Signs Temperature 98.2 F 02/06/25 13:15 Pulse Rate 98 02/06/25 14:00 Respiratory Rate 19 H 02/06/25 14:00 Blood Pressure 135/91 02/06/25 15:00 Pulse Oximetry 97 02/06/25 14:00 Oxygen Delivery Me thod Room Air 02/06/25 14:00 MDM - Neuro Symptoms/Deficit Medical Decision Making Initially I did the patient's NIH when he came in as a stroke alert his last known well was around 845 his initial NIH was 2. Clinically it seemed obvious he was having a stroke although it was rather minor. I had asked the refinery operator reforming unit to contact [employer] they were on-call for stroke I wanted to consult them to see if they concurred on not giving TNKase given the low stroke score. I would return to my office to document his stroke score while I was still documenting the HPI and stroke score the nurse asked that I return to the room urgently as there had been a significant change in the patient's condition and repeat NIH scoring when I returned less than 5 minutes after the initial NIH evaluation his stroke score had increased to a total of 24. He was completely flaccid on his right side now he had a significant facial droop with dysarthria and aphasia with gaze deficit and loss of sensation on the right side. He was not able to follow directions. Decision was made to give TNKase immediately. Patient had discussed earlier when we were holding off because of his low NIH he had consented to it but I told him that we were going to have [facility] see him first before we decide whether or not we would give it to him. Given his sudden drastic change we went ahead and gave him TNKase. I discussed with [facility] on the phone and relayed the history to them and the events they concurred on the TNKase we did a CTA of his head and neck there is a distal M2 segment that is occluded but is not amenable to embolectomy per radiology and per neurology on- call for [facility]. Patient's symptoms nearly completely resolved while he was in the department. His only residual symptom was ataxia in the right arm. Discussed with hospitalist will admit to ICU TNKase for acute stroke. Also note that during the time the patient had the sudden decompensation he became profoundly hypotensive. He had no EKG changes he was also very diaphoretic he was given IV fluids placed in the Trendelenburg the symptoms resolved we are getting troponin series as well. Medical Records I reviewed the patient's medical records. Lab Data I reviewed the patient's lab results. 02/06/25 09:34 02/06/25 09:[address] 02/06/25 09:16 IMPRESSION: 1. No acute intracranial hemorrhage or edema. 2. Mild small vessel disease. No acute infarct identified. Notified Micahel Lee DO at 02/06/2025 9:29 AM. Head/Neck CTA 02/06/25 09:37 IMPRESSION: 1. No cervical carotid artery stenosis or plaque. 2. Central arteries within the [place] are patent with no plaque. 3. Cortical branch from the distal LEFT M2 segment with abrupt termination. This may be an area of small vessel arterial occlusion relating to the patient's symptoms. There is no large central thrombus. Laboratory Results WBC 7.16 10^3/uL (3.29-11.43) 02/06/25 09:34 RBC 4.91 10^6/uL (3.85-5.65) 02/06/25 09:34 Hgb 14.70 g/dL (11.27-16.99) 02/06/25 09:34 Hct 44.1 % (37-53) 02/06/25 09:34 MCV 89.8 fl (82-101) 02/06/25 09:34 MCH 29.9 pg (27-33) 02/06/25 09:34 MCHC 33.3 g/dL (30-55) 02/06/25 09:34 RDW 12.7 % (12.1-15.1) 02/06/25 09:34 Plt Count 301 10^3/cmm (157-399) 02/06/25 09:34 MPV 9.2 fL (7.4-10.4) 02/06/25 09:34 Neut % (Auto) 67.8 % 02/06/25 09:34 Lymph % (Auto) 15.9 % 02/06/25 09:34 [place] % (Auto) 8.7 % 02/06/25 09:34 Eos % (Auto) 5.9 % 02/06/25 09:34 Baso % (Auto) 1.1 % 02/06/25 09:34 Neut # (Auto) 4.86 10^3/uL (1.8-7.7) 02/06/25 09:34 Lymph # (Auto) 1.1 10^3/uL (0.8-4.8) 02/06/25 09:34 [place] # (Auto) 0.6 10^3/uL (0.2-0.9) 02/06/25 09:34 Eos # (Auto) 0.4 10^3/uL (0.0-0.8) 02/06/25 09:34 Baso # (Auto) 0.1 10^3/uL (0.0-0.1) 02/06/25 09:34 Nucleated RBC % (auto) 0 % 02/06/25 09:34 Nucleated RBCs # 0.0 /100WBC 02/06/25 09:34 PT 12.50 SECONDS (12.1-14.9) 02/06/25 09:34 INR 0.87 (0.8-1.2) 02/06/25 09:34 APTT 26.3 SECONDS (23.9-36.7) 02/06/25 09:34 Sodium 138 mmol/L (136-145) 02/06/25 09:34 Potassium 4.2 mmol/L (3.5-5.1) 02/06/25 09:34 Chloride 105 mmol/L (98-107) 02/06/25 09:34 Carbon Dioxide 22 mmol/L (22-29) 02/06/25 09:34 Anion Gap 15.2 (5-19) 02/06/25 09:34 BUN 13 mg/dL (6-20) 02/06/25 09:34 Creatinine 1.0 mg/dL (0.7-1.2) 02/06/25 09:34 GFR Calculation 78.8 mL/min (90-130) L 02/06/25 09:34 Glucose 139 mg/dL (65-115) H 02/06/25 09:34 POC Glucose 131 mg/dL (70-110) H 02/06/25 09:34 Calculated Osmolality 288 mOsm/kg (285-295) 02/06/25 09:34 Calcium 9.1 mg/dL (8.5-10.5) 02/06/25 09:34 Total Bilirubin 0.5 mg/dL (0.15-1.2) 02/06/25 09:34 AST 13 U/L (0-40) 02/06/25 09:34 ALT 13 U/L (0-41) 02/06/25 09:34 Alkaline Phosphatase 94 U/L (40-130) 02/06/25 09:34 Troponin T Baseline < 6 ng/L (0-15) 02/06/25 09:34 Troponin T 120 Minute < 6.0 ng/L (0-15) 02/06/25 11:20 Delta Troponin T 0 ABS# (0-10) 02/06/25 11:20 Total Protein 7.3 g/dL (6.6-8.7) 02/06/25 09:34 Albumin 4.2 g/dL (3.5-5.2) 02/06/25 09:34 Globulin 3.1 g/dL (1.3-4.6) 02/06/25 09:34 All radiology interpretation(s) finalized by discharge EKG Data EKG 1: Interpretation: EKG 02/06/2025 9:28 AM sinus tachycardia with a rate of 102, AK interval 162 QTc 432. No acute changes compared to EKG from 05/31/2017 Discharge Plan Discharge Patient Disposition: Admitted As Inpatient Admit Provider: Isaías Ballesteros Clinical Impression: Acute CVA (cerebrovascular accident) Condition: Stable Coding Level of Care Code ED Engineering Administrator for Tad Rois
--- NOTE | 2025-02-06 09:37 | CT_ITS ---
WS: [id number] CT ANGIOGRAM CEREBRAL AND CAROTID ARTERIES HISTORY: Acute CVA TECHNIQUE: CT angiogram is performed of the carotid and cerebral arteries. During arterial injection imaging is obtained from the skull vertex to the aortic arch in 1.25 mm imaging. Coronal and sagittal reformats are submitted. Additional multi planar reformats of the carotid and cerebral arteries are submitted, MIP imaging also reviewed. NASCET criteria utilized. All CT scans at [facility] use at least one of these dose optimization techniques: automated exposure control; mA and/or kV adjustment per patient size (includes targeted exams where dose is matched to clinical indication); or iterative reconstruction. CONTRAST: Omnipaque 350; 100 mL IV. DLP: 486.66 mGy.cm COMPARISON: CT head 02/06/2025 Carotid Angiogram: Right carotid: Common carotid artery: Arises normally from the innominate artery. No significant plaque or stenosis. Internal carotid artery: No plaque or stenosis. External carotid artery: Patent. Left carotid: Common carotid artery: Arises from the base of the innominate. Patent. Internal carotid artery: No plaque or stenosis. External carotid artery: Patent. Right vertebral artery: Unremarkable. Left vertebral artery: Dominant and patent. Subclavian arteries: No stenosis or significant abnormality. Upper thorax: Normal. Thyroid gland: Normal. Osseous structures: Increase in cervical lordosis. CEREBRAL ANGIOGRAM: Intracranial vertebral arteries: Normal with no significant atherosclerosis. Basilar artery: No significant stenosis or occlusion. No aneurysm. Intracranial Internal carotid arteries: Demonstrates no significant stenosis or plaque. Middle cerebral arteries: Both middle cerebral arteries proximally are widely patent. In the distal LEFT M2 segment there is an abrupt termination of a cortical branch which may be an area of occlusion. This is a small branch and asymmetric to the RIGHT middle cerebral artery. Anterior cerebral arteries and ACOM: Normal. Posterior cerebral arteries and PCOM's: Normal. Dural venous sinuses are normally enhancing. Mastoid air cells: Normal. Paranasal sinuses: Normal. Calvarium: Normal. CT/CT angio headneck* [id number] IMPRESSION: 1. No cervical carotid artery stenosis or plaque. 2. Central arteries within the [place] are patent with no plaque. 3. Cortical branch from the distal LEFT M2 segment with abrupt termination. Th is may be an area of small vessel arterial occlusion relating to the patient's symptoms. There is no large central thrombus.
[2025-02-06] MEDS: tenecteplase 50mg Kit (STROKE) 19 MG IVP (09:43)
[2025-02-06 09:46] LABS: Hematocrit 44.1 % (37-53); Hemoglobin 14.70 g/dL (11.27-16.99); Mean Corpuscular HGB Conc 33.3 g/dL (30-55); Mean Corpuscular Hemoglobin 29.9 pg (27-33); Mean Corpuscular Volume 89.8 fl (82-101); Nucleated Red Blood Cells % 0 %; Platelet Count 301 10^3/cmm (157-399); Red Blood Count 4.91 10^6/uL (3.85-5.65); White Blood Count 7.16 10^3/uL (3.29-11.43)
[2025-02-06 09:55] LABS: INR 0.87 (0.8-1.2); Prothrombin Time 12.50 SECONDS (12.1-14.9)
[2025-02-06 09:56] LABS: Partial Thromboplastin Time 26.3 SECONDS (23.9-36.7)
--- NOTE | 2025-02-06 10:00 | PC.NURSE ---
THIS NURSE AT BEDSIDE, STARTING IV AROUND 0935. PATIENT BECOMES EXTREMELY DIAPHORETIC AND UNABLE TO COMMUNICATE WITH NURSE. PATIENT STATES HIS NUMBNESS IS GETTING WORSE. DR ESTRADA CALLED BACK INTO ROOM DUE TO PATIENT DECLINE. PATIENT BP 60/30S. PATIENT CONNECTED TO ZOLL AND PLACED BOLUS 2 L NS. STROKE SCALE REEVALUATED AND INCREASED FROM [address] ESTRADA ORDERED TNKASE. ADMINISTERED AT 0943 BY HI Yin RN, VERIFIED WITH ARPAN Bragg RN.
[2025-02-06] MEDS: iohexol 350 mg/mL 500 mL Btl (per mL) IV (10:02)
--- NOTE | 2025-02-06 10:06 | PC.NURSE ---
called stroke Alert @ 0918- Started tele stroke @ [address] spoke [address] Dunne called back- [facility] Called back @ 0953 to verify and last four of SSN#
[2025-02-06 10:19] LABS: Alanine Aminotransferase 13 U/L (0-41); Albumin Level 4.2 g/dL (3.5-5.2); Alkaline Phosphatase 94 U/L (40-130); Anion Gap 15.2 (5-19); Aspartate Amino Transferase 13 U/L (0-40); Blood Urea Nitrogen 13 mg/dL (6-20); Calcium 9.1 mg/dL (8.5-10.5); Carbon Dioxide 22 mmol/L (22-29); Chloride 105 mmol/L (98-107); Creatinine Clr Calc Pharmacy 92.8532; Globulin 3.1 g/dL (1.3-4.6); Glucose 139 mg/dL (65-115); Osmolality Calculated 288 mOsm/kg (285-295); Potassium 4.2 mmol/L (3.5-5.1); Sodium 138 mmol/L (136-145); Total Protein 7.3 g/dL (6.6-8.7)
[2025-02-06 10:43] LABS: Troponin(5th) Baseline < 6 ng/L (0-15)
[2025-02-06 11:44] LABS: Troponin 5 2HR < 6.0 ng/L (0-15); Troponin 5 2HR Delta 0 ABS# (0-10)
--- NOTE | 2025-02-06 12:43 | PC.NURSE ---
Pt arrives to ICU from ED. Pt alert and oriented. NIH completed. No deficits noted. Pt stated the right side of his mouth was not numb but felt weird and his right hand felt heavy. No reports of pain, dizziness or other discomforts. Room orientation provided.
[2025-02-06 13:26] LABS: Glucose Urine UA Negative (Normal); Nitrate Urine Negative (Negative); Specific Gravity, Urine 1.025 (1.005-1.030)
[2025-02-06 13:31] LABS: Add Urine Microscopic? YES
[2025-02-06 13:32] LABS: PCP Screen Urine Negative (Negative)
--- NOTE | 2025-02-06 13:37 | P.HP_ITS ---
Providers/Chief Complaint 2 Admitting Physician: Isaías Ballesteros Primary Care Provider: Juarez Shah MD Chief Complaint: R side face and arm tingling, heavy feeling History of Present Illness Marty Nuñez is a 49 year old gentleman with history of recurrent urinary tract infections (UTIs), neurogenic bladder with self-catheterization, and prior kidney stones presents after sudden onset of right arm numbness/tingling and heaviness with right facial tingling while at work around 8:45?9:00 AM. No recent falls or trauma. Not on anticoagulation. In the emergency department (ED), symptoms progressed with an episode of extreme diaphoresis and transient inability to communicate. Initial systolic hypotension reported at approximately 60/30s; received 2 liters of intravenous fluids. National Institutes of Health Stroke Scale (NIHSS) reportedly increased from 3 to 16. After non-contrast head computed tomography (CT) and per telestroke neurology discussion, received tenecteplase (TNK). Computed tomographic angiography (CTA) head/neck showed abrupt termination of a cortical branch from distal left M2 segment; no large central thrombus and no endovascular intervention option per neurology. No repeat head CT was performed prior to TNK. Following TNK, symptoms improved; residual intermittent mild right arm tingling and slight difference in facial sensation reported. Speech currently clear without slurring or word-finding difficulty; earlier could not speak during symptom peak. Reports about one week of congestion and cough after recent exposure while tearing down a building with insulation; denies measured fevers, chills, sore throat, nausea, vomiting, diarrhea, rashes. Denies history of prior stroke, heart attack, stents, lupus, or rheumatoid arthritis. No known history of hypertension or diabetes, though ED blood pressure and blood glucose were noted to be elevated today. Former smoker; quit ~30 years ago. Strong family history of cardiovascular disease in parents and grandparents; three uncles had myocardial infarctions in their 50s?60s. Review of Systems 2 Const: Denies: fever(s), chills, body aches or malaise ENMT: Denies: throat pain Card: Denies: chest pain, edema, pre-syncope or dyspnea on exertion Resp: Denies: dyspnea, productive cough, change in phlegm color or hemoptysis GI: Denies: abdominal pain, nausea, vomiting, diarrhea, constipation, hematochezia or melena : Denies: flank pain, difficulty urinating, urinary frequency or hematuria Musc: Denies: back pain, joint swelling or joint redness Skin/Breast: Denies: rash or new lesions Neuro: Reports: numbness in extremities, weakness in extremities and Slurred speech present; Denies: headache(s) or confusion Medications/Allergies Home Medications ?Medication ?Instructions ?Recorded ?Confirmed ?Last Taken ?Type omeprazole 40 mg capsule,delayed See Rx Instructions . Route 12/01/23 02/06/25 02/05/25 Rx release .COMPLEX #30 caps acetaminophen 325 mg tablet 325 mg PO QID PRN Fever Or Pain 02/06/25 02/06/25 02/05/25 History (Tylenol) fexofenadine 180 mg tablet 180 mg PO DAILY 02/06/2502/05/25 History ibuprofen 200 mg tablet (Advil) 400 mg PO Q6H PRN Pain 02/06/25 02/06/25 02/05/25 History meclizine 25 mg tablet 25 mg PO BID PRN Congestion 02/06/25 02/06/25 02/05/25 History trimethoprim 100 mg tablet 100 mg PO DAILY 02/06/2502/05/25 History Allergies Allergy/AdvReac Type Severity Reaction Status Date / Time No Known Allergies Allergy Verified 02/06/25 09:16 PFSH Acute 2 PFSH: Medical History Urolithiasis Recurrent UTI Neurogenic bladder, flaccid Self-catheterizes urinary bladder Surgical History Hx of transurethral resection of prostate Family History Father , at age 68 CAD (coronary artery disease) Mother Cancer breast Other Diabetes Denies family history of Clotting disorder Dementia Hyperlipidemia Psychiatric illness Chronic kidney disease (CKD) Anesthesia complication Bleeding disorder Lung disease Hypertension Stroke Social History Smoking and tobacco/nicotine status: former use of tobacco/nicotine Alcohol intake: current Alcohol intake frequency: holidays/special occasions only Alcohol type: beer Substance/Drug Use: never Lives independently: Yes Marital status: Number of children: 1 Current occupational status: employed 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 Ramona/Zoroastrian: Confucianism Special ramona needs: No Agree to transfusion: Yes Vitals/I&O/Wt Last Vital Signs Temp 97.8 F 02/06/25 11:10 Pulse 95 02/06/25 13:29 Resp 16 02/06/25 12:46 BP 139/91 02/06/25 12:46 Pulse Ox 98 02/06/25 13:29 O2 Del Method Room Air 02/06/25 13:29 Weight last 48 hrs Weight 74.843 kg Physical Exam 2 Narrative: Accompanied by family Const: COMMON NORMALS: patient oriented x3 and alert GENERAL APPEARANCE: c ooperative ORIENTATION/CONSCIOUSNESS: Yes awake HENMT: COMMON NORMALS: oropharynx normal Neck/C-Spine: COMMON NORMALS: no JVD Resp: COMMON NORMALS: normal respiratory effort and clear to auscultation bilaterally AUSCULTATION: clear to auscultation bilaterally Cardio: COMMON NORMALS: no JVD, regular rhythm, S1 normal heart sound present, S2 normal heart sound present and No murmurs present (Cardio) RHYTHM: regular rhythm HEART SOUNDS: S1 normal heart sound present and S2 normal heart sound present GI: COMMON NORMALS: Normal to inspection, nondistended, normoactive bowel sounds present, Soft to palpation and non-tender PALPATION: Yes Soft to palpation Extremity: COMMON NORMALS: no joint enlargement and no pedal edema Neuro: COMMON NORMALS: patient oriented x3 and moves all extremities S ENSORIUM/ORIENTATION: Yes alert OTHER: He is awake and alert, keenly responsive, no difficulty following directions. No slurred speech, no obvious facial droop. No aphasia. No difficulties with horizontal tracking. Visual shi full to confrontation. No visual extinction. Normal FNF. Sensation symmetrical. No sensory extinction. No upper or lower extremity drift. Skin: COMMON NORMALS: no rashes or lesions noted GENERAL SKIN EXAM: no rashes or lesions noted Data 02/06/25 09:34 02/06/25 09:34 A&P Assessment and plan 1. Acute CVA (cerebrovascular accident): Acute ischemic stroke, left middle cerebral artery (M2 branch) territory (treated with TNK) : ED presentation with right-sided neurologic symptoms; CTA showed distal left M2 cortical branch abrupt termination; treated with TNK with symptom improvement. Residual minimal subjective symptoms over the right side of the face and right arm, although sensation is symmetrical. No intervenable large vessel occlusion. Reviewed vitals, CBC, INR, CMP, troponin, UA, UDS, CT head, head and neck CTA, EKG, ED provider note, discussed with ED provider. - Allow permissive hypertension after TNK unless blood pressure becomes fairly high (then treat). - Hold antiplatelet therapy for approximately 24 hours after TNK due to bleeding risk. - Repeat head CT tomorrow to ensure no hemorrhage. - Start aspirin indefinitely after repeat head CT if no bleed. - Start cholesterol medication (statin) regardless of current cholesterol due to stroke. - Consider adding clopidogrel (Plavix) to aspirin for 21 days based on symptoms, then stop clopidogrel and continue aspirin alone. - Arrange neurology follow-up within about one week after discharge. - DC and avoid NSAIDs - With recent viral-like illness, respiratory virus panel Plan: Neurogenic bladder with urinary retention risk : Known neurogenic bladder with typical post-void residuals 200?400 mL; post-TNK catheterization precautions discussed. - Avoid self-catheterization until tomorrow morning if possible (per post-TNK precautions). - Spot-check bladder (scan) during shift; if retention >=00 mL or unable to void despite attempts, place Albarran catheter (order to be placed). Elevated blood pressure (no prior hypertension history) : Elevations noted during acute stroke context; home monitoring discussed. - Recommend obtaining an upper-arm automatic home blood pressure cuff and monitor regularly; long-term goal around 120/80 mmHg. Hyperglycemia (no prior diabetes history) : Elevated blood glucose noted today; evaluation planned. - Order hemoglobin A1C to assess glycemic control over prior months. Tobacco use, former : Quit approximately 30 years ago. Upper respiratory congestion/cough : About one week of congestion and cough; improving. - Avoid ibuprofen due to increased cardiovascular and stroke risk; prefer acetaminophen for aches/pains and use allergy/congestion medications as needed. Follow-up : Post-hospital care coordination. - Follow up with primary care provider (Dr. Brasher). - Follow up with neurology within about one week after discharge. - Obtain echocardiogram with bubble study to assess for shunt (e.g., septal defect). - Monitor heart rhythm in hospital to evaluate for arrhythmia such as atrial fibrillation. - Physical therapy, occupational therapy, and speech therapy evaluations while inpatient. PDMP PDMP Reviewed: Not Reviewed Attestations 2 Medical Necessity Statement*: Admission of over 2 midnights dissipated for assessment and management of acute CVA treated with TNK. Coding Level of Care Code Critical Care >/= 30 minutes Critical care time (in minutes): 35 The high probability of a clinically significant, sudden or life threatening deterioration, as referenced in this documentation, required my full and direct attention, intervention and personal management. The critical care time shown is in addition to time spent performing any reported separately billable procedures and includes the following: [x] Data and vital sign review and interpretation [x ] Patient assessment, examination and intervention [x] Medication orders and management [x] Patient/Family updates as able [x] Care Coordination and Documentation. Diagnoses Acute CVA (cerebrovascular accident) I63.9
--- NOTE | 2025-02-06 13:45 | USCV_ITS ---
Marty Nuñez Age: 49 Gender: M : 1975 Exam Date: 02/06/2025 15:25 Ordering Phys: Isaías Ballesteros MD Technologist: TYLOR Exam Location: [facility] [place] Indication: CVA BP: 135 / 91 HR: 85 Rhythm: Sinus Technical Quality: Adequate MEASUREMENTS (Male / Female) Normal Values 2D ECHO LV Diastolic Diameter PLAX 4.1 cm 4.2 - 5.9 / 3.9 - 5.3 cm IVS Diastolic Thickness 0.9 cm 0.6 - 1.0 / 0.6 - 0.9 cm IVS Systolic Thickness 1.4 cm LVPW Diastolic Thickness 1.2 cm 0.6 - 1.0 / 0.6 - 0.9 cm LVPW Systolic Thickness 1.5 cm LVOT Diameter 2.0 cm LV Ejection Fraction 2D Teich 66.2 % LV Ejection Fraction MOD 4C 53.3 % LV Ejection Fraction MOD 2C 58.5 % LV Ejection Fraction 2C AL 62.1 % LA Diameter 2.8 cm RA Systolic Volume 4C AL 28.3 ml RA Systolic Volume 4C MOD 27.4 ml LA Sys Volume AL 30.1 cm cubed LA Sys Volume Index AL 15.4 cm cubed/m squared Aorta at Sinotubular Diameter 2.8 cm M-MODE LA Ao Ratio MM 1.0 AV Cusp Separation MM 1.5 cm DOPPLER AV Peak Velocity 101.0 cm/s LVOT Peak Velocity 81.0 cm/s AV Area Cont Eq vti 2.2 cm squared AV Area Cont Eq pk 2.6 cm squared MV Peak Velocity 91.0 cm/s MV Area PHT 10.3 cm squared Mitral E to A Ratio 0.7 TR Peak Velocity 85.0 cm/s TR Peak Gradient 2.9 mmHg TV Peak E Velocity 72.0 cm/s PV Peak Velocity 79.0 cm/s FINDINGS Left Ventricle Normal left ventricular size, systolic function and wall thickness, with no regional wall motion abnormalities. Left ventricular ejection fraction is estimated at 60 %. Grade I/IV diastolic dysfunction (abnormal relaxation filling pattern), normal to mildly elevated filling pressures. No intracardiac shunt by bubble study Right Ventricle The right ventricle is normal in size and function. Right Atrium The right atrium is normal in size. Left Atrium The left atrium is normal in size. Mitral Valve Moderately thickened mitral valve. No mitral valve stenosis. Trace mitral valve regurgitation. Aortic Valve Moderate aortic valve calcification. No aortic valve stenosis. Trace aortic valve regurgitation. Tricuspid Valve Structurally normal tricuspid valve without significant stenosis or regurgitation. Pulmonary artery systolic pressure is normal. Pulmonic Valve Structurally normal pulmonic valve without significant stenosis. There is no pulmonic regurgitation. Pericardium Normal pericardium without effusion. Aorta Normal ascending aorta dimension. IVC The inferior vena cava appears normal. CONCLUSIONS Normal left ventricular size, systolic function and wall thickness, with no regional wall motion abnormalities. Left ventricular ejection fraction is estimated at 60 %. Grade I/IV diastolic dysfunction (abnormal relaxation filling pattern), normal to mildly elevated filling pressures. No intracardiac shunt with bubble study noted. There is no pericardial effusion. No significant valve abnormalities. Right atrial pressure is around 5 mm of mercury. Kina Bacon MD (Electronically Signed) Final Date: 07 February 2025 09:41 Amended: 07 February 2025 11:37 C
--- NOTE | 2025-02-06 14:31 | PC.NURSE ---
enrollment coordinator rounds at 1400- gave patient and family stroke education book, patient NIHSS 0 at this time. Patient states he feels a lot better.
[2025-02-06 17:21] LABS: Troponin 5 6HR 8.05 ng/L (0-15); Troponin 5 6HR Delta 2.05001 ng/L (0-12)
[2025-02-06 19:09] LABS: Coronavirus 229E,HKU1,NL63,OC4 Not Detected (NOT DETECT); Parainfluenza Virus Type 1 Not Detected (NOT DETECT); Parainfluenza Virus Type 2 Not Detected (NOT DETECT); Parainfluenza Virus Type 3 Not Detected (NOT DETECT); Parainfluenza Virus Type 4 Not Detected (NOT DETECT); SARS-COV-2 Not Detected (NOT DETECT)
--- NOTE | 2025-02-06 19:33 | PC.NURSE ---
Shift summary: Pt has remained resting in bed. Pt alert and oriented No Neuro deficits noted. NIH of 0 this afternoon. Bedside swallowing eval completed, no issues. Sinus, first degree block noted on manager video games VSS. No reports of pain or other discomforts. Pt able to empty 1250 ml out of his bladder this afternoon At this time, brody cath insertion not indicated. Pt ate majority of his meal this afternoon.
[2025-02-07] VITALS (14 sets, daily range): BP systolic 103–134; BP diastolic 77–102; PULSE 71–111; RESP 13–26; TEMP 36.7–37.1; O2SAT 96–99
[2025-02-07 04:02] LABS: Hematocrit 41.1 % (37-53); Hemoglobin 13.70 g/dL (11.27-16.99); Mean Corpuscular HGB Conc 33.3 g/dL (30-55); Mean Corpuscular Hemoglobin 30.8 pg (27-33); Mean Corpuscular Volume 92.4 fl (82-101); Nucleated Red Blood Cells % 0 %; Platelet Count 283 10^3/cmm (157-399); Red Blood Count 4.45 10^6/uL (3.85-5.65); White Blood Count 8.39 10^3/uL (3.29-11.43)
[2025-02-07 04:28] LABS: Cholesterol 161 mg/dL (0-200); HDL Cholesterol 41 mg/dL (60-100); Triglycerides 84 mg/dL (0-150)
[2025-02-07 04:33] LABS: Anion Gap 16.0 (5-19); Blood Urea Nitrogen 11 mg/dL (6-20); Calcium 8.9 mg/dL (8.5-10.5); Carbon Dioxide 22 mmol/L (22-29); Chloride 107 mmol/L (98-107); Creatinine Clr Calc Pharmacy 116.7816; Glucose 106 mg/dL (65-115); Osmolality Calculated 292 mOsm/kg (285-295); Potassium 4.0 mmol/L (3.5-5.1); Sodium 141 mmol/L (136-145)
[2025-02-07 04:35] LABS: Estmated Average Glucose 111; Hemoglobin A1C 5.5 % (4.0-6.0)
--- NOTE | 2025-02-07 08:45 | PC.NURSE ---
media coordinator rounds at 0800- patient eating breakfast, states he is doing well. bedside, PT arrived to do therapy.
--- NOTE | 2025-02-07 09:00 | CT_ITS ---
WS: [id number] CT HEAD NONCONTRAST HISTORY: acute stroke TECHNIQUE: Contiguous axial imaging performed through the brain. Bone and soft tissue windows. Sagittal and coronal reformats reviewed. All CT scans at [facility] use at least one of these dose optimization techniques: automated exposure control; mA and/or kV adjustment per patient size (includes targeted exams where dose is matched to clinical indication); or iterative reconstruction. DLP: 1263.22 mGy.cm COMPARISON: 02/06/2025 No acute intracranial hemorrhage, midline shift or mass effect. No definite area of sulcal effacement or new infarct identified. Mild small vessel disease. No atrophy or prior infarcts or herniation. Ventricles: Normal size with no hydrocephalus. Paranasal sinuses: As visualized are clear. Mastoid air cells: Well pneumatized. Calvarium and scalp: Skull is intact with no soft tissue edema or swelling. CT/CT head wo con* [id number] IMPRESSION: 1. No acute intracranial hemorrhage. 2. No definite area of edema or developing LEFT infarct identified on today's CT.
--- NOTE | 2025-02-07 10:28 | P.DS_ITS ---
Discharge Providers Date of Admission: 02/06/25 11:41 Date of Discharge: February 07, 2025 Attending Provider at Admission: Isaías Ballesteros Attending Provider at Discharge: Isaías Ballesteros Primary Care Provider: Juarez Shah MD Diagnoses at Discharge Discharge Diagnosis 1. Acute CVA (cerebrovascular accident): Reason for Visit Reason for Visit: R side face and arm tingling, heavy feeling Brief History: Marty Nuñez is a 49 year old gentleman with history of recurrent urinary tract infections (UTIs), neurogenic bladder with self-catheterization, and prior kidney stones presents after sudden onset of right arm numbness/tingling and heaviness with right facial tingling while at work around 8:45?9:00 AM. No recent falls or trauma. Not on anticoagulation. In the emergency department (ED), symptoms progressed with an episode of extreme diaphoresis and transient inability to communicate. Initial systolic hypotension reported at approximately 60/30s; received 2 liters of intravenous fluids. National Institutes of Health Stroke Scale (NIHSS) reportedly increased from 3 to 16. After non-contrast head computed tomography (CT) and per telestroke neurology discussion, received tenecteplase (TNK). Computed tomographic angiography (CTA) head/neck showed abrupt termination of a cortical branch from distal left M2 segment; no large central thrombus and no endovascular intervention option per neurology. No repeat head CT was performed prior to TNK. Following TNK, symptoms improved; res idual intermittent mild right arm tingling and slight difference in facial sensation reported. Speech currently clear without slurring or word-finding difficulty; earlier could not speak during symptom peak. Reports about one week of congestion and cough after recent exposure while tearing down a building with insulation; denies measured fevers, chills, sore throat, nausea, vomiting, diarrhea, rashes. Denies history of prior stroke, heart attack, stents, lupus, or rheumatoid arthritis. No known history of hypertension or diabetes, though ED blood pressure and blood glucose were noted to be elevated today. Former smoker; quit ~30 years ago. Strong family history of cardiovascular disease in parents and grandparents; three uncles had myocardial infarctions in their 50s?60s. Hospital Course Hospital Course He was monitored in intensive care unit following TNK administration. Blood pressures were monitored with permissive hypertension fluctuating between low 100s and high 130s overnight. He was monitored on telemetry without any events. Echocardiogram was obtained which was unremarkable with grade 1 diastolic dysfunction without WMA, normal EF, no significant valve abnormalities. No intracardiac shunt. A1c was obtained and not elevated 5.5. Discussed with him hyperglycemia caution with carbohydrate intake. He states he will be watching his diet. He has been started on aspirin after unremarkable repeat CT head, and discussed with him also 21 days of Plavix, continued statin, avoidance of NSAIDs due to increasing risk of CVA, continued monitoring and optimization of blood pressures, targeting long-term blood pressure 120/80, as well as follow-up with primary provider and neurology in office for further assessments, consideration of assessment for a hypercoagulable disorder. 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 Please follow-up. He knows to seek medical at tention in case of any worsening or new concerning symptoms. Physical Exam Const: COMMON NORMALS: patient oriented x3 and alert GENERAL APPEARANCE: cooperative ORIENTATION/CONSCIOUSNESS: Yes awake HENMT: COMMON NORMALS: oropharynx normal Neck/C-Spine: COMMON NORMALS: no JVD Resp: COMMON NORMALS: normal respiratory effort and clear to auscultation bilaterally AUSCULTATION: clear to auscultation bilaterally Cardio: COMMON NORMALS: no JVD, regular rhythm, S1 normal heart sound present, S2 normal heart sound present and No murmurs present (Cardio) RHYTHM: regular rhythm HEART SOUNDS: S1 normal heart sound present and S2 normal heart sound present GI: COMMON NORMALS: Normal to inspection, nondistended, normoactive bowel sounds present, Soft to palpation and non-tender PALPATION: Yes Soft to palpation Extremity: COMMON NORMALS: no joint enlargement and no pedal edema Neuro: COMMON NORMALS: patient oriented x3 and moves all extremities SENSORIUM/ORIENTATION: Yes alert OTHER: He is pleasant, conversant. Symptoms have resolved entirely. He is awake and alert, keenly responsive. No finding difficulties or dysarthria. No facial droop. No difficulties with horizontal tracking, visual shi full to confrontation, no visual extinction. FNF normal. Sensation symmetrical, no sensory extinction. No upper or lower extremity drift. Skin: COMMON NORMALS: no rashes or lesions noted GENERAL SKIN EXAM: no rashes or lesions noted Discharge Data Studies Completed and Pending Completed Studies During Hospitalization Category Date Time Status CT head thrombolytic [id number] Stat Cat Scan 02/06/25 09:[address] head wo con* [id number] Routine Cat Scan 02/07/25 09:00 Completed CTA head neck [CT angio headneck* [id number]] Stat Cat Scan 02/06/25 09:37 Completed CV. echo w/w bubble cont [id number] Routine Ultrasound 02/06/25 13:45 Completed Pending at discharge Category Date Time Status Basic Metabolic Panel AM LABS Lab 02/08/25 04:00 Ordered Basic Metabolic Panel AM LABS Lab 02/09/25 04:00 Ordered Complete Blood Count w/Auto AM LABS Lab 02/08/25 04:00 Ordered Complete Blood Count w/Auto AM LABS Lab 02/09/25 04:00 Ordered Radiology Impressions Head/Neck CTA 02/06/25 09:37 IMPRESSION: 1. No cervical carotid artery stenosis or plaque. 2. Central arteries within the [place] are patent with no plaque. 3. Cortical branch from the distal LEFT M2 segment with abrupt termination. This may be an area of small vessel arterial occlusion relating to the patient's symptoms. There is no large central thrombus. Head CT 02/07/25 09:00 IMPRESSION: 1. No acute intracranial hemorrhage. 2. No definite area of edema or developing LEFT infarct identified on today's CT. Laboratory Results WBC 8.39 10^3/uL (3.29-11.43) 02/07/25 03:47 RBC 4.45 10^6/uL (3.85-5.65) 02/07/25 03:47 Hgb 13.70 g/dL (11.27-16.99) 02/07/25 03:47 Hct 41.1 % (37-53) 02/07/25 03:47 MCV 92.4 fl (82-101) 02/07/25 03:47 MCH 30.8 pg (27-33) 02/07/25 03:47 MCHC 33.3 g/dL (30-55) 02/07/25 03:47 RDW 12.8 % (12.1-15.1) 02/07/25 03:47 Plt Count 283 10^3/cmm (157-399) 02/07/25 03:47 MPV 9.0 fL (7.4-10.4) 02/07/25 03:47 Neut % (Auto) 68.9 % 02/07/25 03:47 Lymph % (Auto) 14.5 % 02/07/25 03:47 [place] % (Auto) 10.4 % 02/07/25 03:47 Eos % (Auto) 4.9 % 02/07/25 03:47 Baso % (Auto) 0.8 % 02/07/25 03:47 Neut # (Auto) 5.78 10^3/uL (1.8-7.7) 02/07/25 03:47 Lymph # (Auto) 1.2 10^3/uL (0.8-4.8) 02/07/25 03:47 [place] # (Auto) 0.9 10^3/uL (0.2-0.9) 02/07/25 03:47 Eos # (Auto) 0.4 10^3/uL (0.0-0.8) 02/07/25 03:47 Baso # (Auto) 0.1 10^3/uL (0.0-0.1) 02/07/25 03:47 Nucleated RBC % (auto) 0 % 02/07/25 03:47 Nucleated RBCs # 0.0 /100WBC 02/07/25 03:47 PT 12.50 SECONDS (12.1-14.9) 02/06/25 09:34 INR 0.87 (0.8-1.2) 02/06/25 09:34 APTT 26.3 SECONDS (23.9-36.7) 02/06/25 09:34 Sodium 141 mmol/L (136-145) 02/07/25 03:47 Potassium 4.0 mmol/L (3.5-5.1) 02/07/25 03:47 Chloride 107 mmol/L (98-107) 02/07/25 03:47 Carbon Dioxide 22 mmol/L (22-29) 02/07/25 03:47 Anion Gap 16.0 (5-19) 02/07/25 03:47 BUN 11 mg/dL (6-20) 02/07/25 03:47 Creatinine 0.8 mg/dL (0.7-1.2) 02/07/25 03:47 GFR Calculation 101.9 mL/min (90-130) 02/07/25 03:47 Glucose 106 mg/dL (65-115) 02/07/25 03:47 POC Glucose 131 mg/dL (70-110) H 02/06/25 09:34 Estimat Average Glucose 111 02/07/25 03:47 Hemoglobin A1c 5.5 % (4.0-6.0) 02/07/25 03:47 Calculated Osmolality 292 mOsm/kg (285-295) 02/07/25 03:47 Calcium 8.9 mg/dL (8.5-10.5) 02/07/25 03:47 Total Bilirubin 0.5 mg/dL (0.15-1.2) 02/06/25 09:34 AST 13 U/L (0-40) 02/06/25 09:34 ALT 13 U/L (0-41) 02/06/25 09:34 Alkaline Phosphatase 94 U/L (40-130) 02/06/25 09:34 Troponin T Baseline < 6 ng/L (0-15) 02/06/25 09:34 Troponin T 120 Minute < 6.0 ng/L (0-15) 02/06/25 11:20 Delta Troponin T 0 ABS# (0-10) 02/06/25 11:20 Troponin T Hi Sens 6Hr 8.05 ng/L (0-15) 02/06/25 16:27 Troponin T Hi Sens 6Hr Delta 2.13923 ng/L (0-12) 02/06/25 16:27 Total Protein 7.3 g/dL (6.6-8.7) 02/06/25 09:34 Albumin 4.2 g/dL (3.5-5.2) 02/06/25 09:34 Globulin 3.1 g/dL (1.3-4.6) 02/06/25 09:34 Triglycerides 84 mg/dL (0-150) 02/07/25 03:47 Cholesterol 161 mg/dL (0-200) 02/07/25 03:47 LDL Cholesterol, Calc 103 mg/dL (50-129) 02/07/25 03:47 HDL Cholesterol 41 mg/dL (60-100) L 02/07/25 03:47 LDL/HDL Ratio 2.51 RATIO (0.00-3.22) 02/07/25 03:47 Cholesterol/HDL Ratio 3.93 mg/dL (1.0-5.00) 02/07/25 03:47 Urine Color Yellow (Yellow) 02/06/25 12:50 Urine Appearance Clear (CLEAR) 02/06/25 12:50 Urine pH 7.5 (5-7) 02/06/25 12:50 Ur Specific [place] 1.025 (1.005-1.030) 02/06/25 12:50 Urine Protein Negative (Negative) 02/06/25 12:50 Urine Glucose (UA) Negative (Normal) 02/06/25 12:50 Urine Ketones Negative (Negative) 02/06/25 12:50 Urine Blood Negative (Negative) 02/06/25 12:50 Urine Nitrate Negative (Negative) 02/06/25 12:50 Urine Bilirubin Negative (Negative) 02/06/25 12:50 Urine Urobilinogen 0.2 mg/dL (Negative) 02/06/25 12:50 Ur Leukocyte Esterase Negative (Negative) 02/06/25 12:50 Urine RBC 0-2 /hpf (0-2) 02/06/25 12:50 Urine WBC 6-10 /hpf (0-5) 02/06/25 12:50 Ur Squamous Epith Cells 0-5 /hpf (0-5) 02/06/25 12:50 Amorphous Sediment Not Reportable 02/06/25 12:50 Urine Bacteria None seen /hpf (NONE) 02/06/25 12:50 Hyaline Casts 0-4 /lpf H 02/06/25 12:50 Urine Opiates Screen Negative ng/mL (Negative) 02/06/25 12:50 Ur Barbiturates Screen Negative ng/mL (Negative) 02/06/25 12:50 Ur Phencyclidine Scrn Negative ng/mL (Negative) 02/06/25 12:50 Ur Amphetamines Screen Negative ng/mL (Negative) 02/06/25 12:50 U Benzodiazepines Scrn Negative ng/mL (Negative) 02/06/25 12:50 Urine Cocaine Screen Negative ng/mL (Negative) 02/06/25 12:50 U Marijuana (THC) Screen Negative ng/mL (Negative) 02/06/25 12:50 Adenovirus (PCR) Not detected (NOT DETECT) 02/06/25 15:00 C. pneumoniae DNA (PCR) Not detected (NOT DETECT) 02/06/25 15:00 Coronavirus 229E (PCR) Not detected (NOT DETECT) 02/06/25 15:00 Human Metapneumovir PCR Not detected (NOT DETECT) 02/06/25 15:00 Influenza A (H1) PCR Not detected (NOT DETECT) 02/06/25 15:00 Influ A (H1/09) PCR Not detected (NOT DETECT) 02/06/25 15:00 Influenza A (H3) PCR Not detected (NOT DETECT) 02/06/25 15:00 Influenza Type A (PCR) Not detected (NOT DETECT) 02/06/25 15:00 Influenza Type B (PCR) Not detected (NOT DETECT) 02/06/25 15:00 M. pneumoniae (PCR) Not detected (NOT DETECT) 02/06/25 15:00 Parainfluenza 1 (PCR) Not detected (NOT DETECT) 02/06/25 15:00 Parainfluenza 2 (PCR) Not detected (NOT DETECT) 02/06/25 15:00 Parainfluenza 3 (PCR) Not detected (NOT DETECT) 02/06/25 15:00 Parainfluenza 4 (PCR) Not detected (NOT DETECT) 02/06/25 15:00 RSV Type A (PCR) Not detected (NOT DETECT) 02/06/25 15:00 RSV Type B (PCR) Not detected (NOT DETECT) 02/06/25 15:00 Entero/Rhino (PCR) Not detected (NOT DETECT) 02/06/25 15:00 SARS-CoV-2 (PCR) Not detected (NOT DETECT) 02/06/25 15:00 Vitals Last Vital Signs Temp 98.8 F 02/07/25 07:57 Pulse 111 H 02/07/25 08:00 Resp 16 02/07/25 08:00 BP 125/89 02/07/25 08:00 Pulse Ox 98 02/07/25 08:00 O2 Del Method Room Air 02/07/25 08:00 Discharge Plan Discharge Patient Disposition: Home Condition: Stable Prescriptions: New atorvastatin 40 mg Tablet 40 mg PO BEDTIME Qty: 90 0RF aspirin 81 mg Tablet,Delayed Release (Dr/Ec) 81 mg PO DAILY Qty: 90 0RF clopidogrel 75 mg tablet 75 mg PO DAILY Qty: 21 0RF Continued omeprazole 40 mg capsule,delayed release(DR/EC) See Rx Instructions .ROUTE .COMPLEX Qty: 30 0RF Dose Instruction: Take 1 capsule by mouth at bedtime Rx Instructions: Take 1 capsule by mouth at bedtime acetaminophen [Tylenol] 325 mg Tablet 325 mg PO QID PRN (Reason: Fever Or Pain) fexofenadine 180 mg Tablet 180 mg PO DAILY trimethoprim 100 mg tablet 100 mg PO DAILY meclizine 25 mg Tablet 25 mg PO BID PRN (Reason: Congestion) Discontinued ibuprofen [Advil] 200 mg Tablet 400 mg PO Q6H PRN (Reason: Pain) Discharge Order = DC NOW: Discharge Order (Routine); Ordered 02/07/25 Ordered By: Isaías Ballesteros Referrals: Ruth Pedroza MD [Physician, Neurology] - 04/29/25 3:00 pm Juarez Shah MD [Primary Care Provider, Family Practice] - 4-7 days Referral Note: We have notified your physician's clinic of the need for a follow-up appointment to be scheduled. If you have not heard from them within the next 2 business days, please call them directly. Discharge Diet: Cardiac Discharge Activity: As per PT/OT instructions Patient Instructions: Aspirin (By mouth), Atorvastatin (By mouth) (Lipitor, Atorvaliq), Clopidogrel (By mouth) (Plavix), Ischemic Stroke (GEN), Fall Prevention (DC), Stroke Stoplight, Patient Portal & Agustín Instructions Activity Restrictions/Additional Instructions: Continue aspirin and atorvastatin indefinitely. Take Plavix for 21 days and then discontinue. Avoid injury due to risk of bleeding with aspirin and Plavix, in case of the minor or nonresolving bleeding seek medical attention. Please discontinue ibuprofen and avoid NSAIDs due to increasing risk of cardiovascular events including stroke. Continue to monitor blood pressures at home 3 times daily. Target blood pressures of 120/80 long-term. Follow-up with your primary doctor and with neurology for reassessment and additional evaluation following acute stroke. Seek medical attention in case of any worsening or new concerning symptoms. Discharge Attestations Time Spent in Discharge Care*: greater than 30 min Quality Metrics Clinical Quality Measures [ No reported AMI, CVA or VTE this stay] Coding Level of Care Code 40050 Total time (in minutes) for Discharge: 50 Diagnoses Acute CVA (cerebrovascular accident) I63.9
--- NOTE | 2025-02-07 12:26 | PC.NURSE ---
Discharge: Patient and his educated on stroke, asprin, plavix, and to DC ibuprofen. 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 Stroke stoplight reviewed with patient.
== END 2025-02-07 12:27 | disposition home or self-care (01) ==
LOC: ER 10:00 → ICU 12:29
PROVIDERS: Admitting Provider Internal Medicine; Emergency Provider Family Medicine; PCP Family Medicine; Visit Provider Internal Medicine
DX: I63.9 Cerebral infarction, unspecified (principal); R29.702 NIHSS score 2; K21.9 Gastro-esophageal reflux disease without esophagitis; Z87.891 Personal history of nicotine dependence
CPT/HCPCS: 36415; 36416; 70450; 70496; 70498; 80048; 80053; 80061; 80306; 81001; 82962; 83036; 84484; 85025; 85610; 85730; 87486; 87581; 87633; 92523; 92610; 93005; 96374; 97161; 97165; 99291; 99292; C8929; G0378; J3101; J9999

== ENCOUNTER → 2025-02-19 08:16 | Outpatient (BNVA) | payer BC, SELFPAY | PROVIDERS: PCP Family Medicine; Visit Provider Family Medicine | DX: R39.9 Unspecified symptoms and signs involving the genitourinary system (principal) | CPT/HCPCS: 81000 ==

== ENCOUNTER → 2025-03-04 12:33 | Outpatient (BNVA) | payer BC, SELFPAY | PROVIDERS: PCP Family Medicine; Visit Provider Nurse Practitioner | DX: I63.9 Cerebral infarction, unspecified (principal) | CPT/HCPCS: 36415; 81241; 83090; 85210; 85300; 85303; 85306; 85613; 85730 ==